=== PATIENT | female | born 1955 | race Caucasian/White ===

== ENCOUNTER 2019-03-21 12:43 | Emergency (ER) | payer MEDICARE, OTHER ==
[2019-03-21 13:00] VITALS: RESP 20; TEMP 98.1; O2SAT 95
[2019-03-21] MEDS ORDERED: ACETAMINOPHEN 325 MG PO ONE (13:00)
[2019-03-21] MEDS ORDERED: ACETAMINOPHEN 325 MG ONE (13:45)
[2019-03-21 13:48] LABS: BASOPHILS % (AUTO) 1 % (0-3); EOSINOPHILS % (AUTO) 2 % (0-9); HEMATOCRIT 41 % (35-47); HEMOGLOBIN 13.3 gm/dl (12.0-15.5); LYMPHOCYTES % (AUTO) 18.8 % (10-50); MEAN CORPUSCULAR HEMOGLOBIN 27.3 pg (27.0-32.0); MEAN CORPUSCULAR HGB CONC 32.8 gm/dl (32.0-36.0); MEAN CORPUSCULAR VOLUME 83 fL (81-99); NEUTROPHILS % (AUTO) 69.3 % (37-80)
[2019-03-21 13:50] VITALS: BP 125/78; PULSE 70
[2019-03-21 14:02] LABS: ALBUMIN 3.5 gm/dl (3.4-5.0); BILIRUBIN,TOTAL 0.4 mg/dl (0.2-1.0); CALCIUM 8.6 mg/dl (8.5-10.1); CARBON DIOXIDE 27.5 mEq/L (21-32); POTASSIUM 3.4 mMol/L (3.5-5.1); TOTAL PROTEIN 6.8 gm/dl (6.4-8.2)
[2019-03-21 14:22] LABS: APPEARANCE,URINE Clear; BILIRUBIN,URINE 1+ (NEGATIVE); COLOR,URINE Dark yellow; GLUCOSE, URINE (UA) NEGATIVE (NEGATIVE); KETONES,URINE TRACE (NEGATIVE); LEUKOCYTE ESTERASE ,URINE NEGATIVE (NEGATIVE); NITRATE,URINE NEGATIVE (NEGATIVE); OCCULT BLOOD,URINE TRACE INTACT (NEG-TRACE); PH,URINE 5.5
[2019-03-21 14:36] LABS: BACTERIA 2+ (< 1+); CRYSTALS NEGATIVE (0-3 AVE/HPF); EPITHELIAL CELLS 0-4 (SQUAMOUS); ICTOTEST,URINE NEGATIVE (NEGATIVE); RBC,URINE 0-1 (0-3AV/HPF); WBC,URINE NEG (0-5AV/HPF)
== END 2019-03-21 15:15 | DRG 556 ==
LOC: ED 12:43
DX: M25.552 Pain in left hip (principal); T14.8XXA Other injury of unspecified body region, initial encounter; W18.30XA Fall on same level, unspecified, initial encounter; M25.521 Pain in right elbow; R40.2412 Glasgow coma scale score 13-15, at arrival to emergency department
CPT/HCPCS: 36415; 73070; 73501; 80053; 81001; 85025; 87088; 93005; 99283

== ENCOUNTER 2019-03-23 23:03 | Inpatient (IN) | payer MEDICARE, OTHER ==
[2019-03-23] MEDS: SODIUM CHLORIDE 0.9% 500 ML 500 ML IV SCH (23:45)
[2019-03-24 00:06] LABS: BASOPHILS % (AUTO) 1 % (0-3); EOSINOPHILS % (AUTO) 4 % (0-9); HEMATOCRIT 40 % (35-47); HEMOGLOBIN 12.9 gm/dl (12.0-15.5); LYMPHOCYTES % (AUTO) 36.2 % (10-50); MEAN CORPUSCULAR HEMOGLOBIN 27.6 pg (27.0-32.0); MEAN CORPUSCULAR HGB CONC 32.4 gm/dl (32.0-36.0); MEAN CORPUSCULAR VOLUME 85 fL (81-99); MONOCYTES % (AUTO) 7.1 % (0-12); NEUTROPHILS % (AUTO) 51.4 % (37-80)
[2019-03-24 00:32] LABS: ALBUMIN 3.3 gm/dl (3.4-5.0); BILIRUBIN,TOTAL 0.3 mg/dl (0.2-1.0); CALCIUM 8.5 mg/dl (8.5-10.1); CREATININE 0.83 mg/dl (0.60-1.00); TOTAL PROTEIN 6.5 gm/dl (6.4-8.2)
[2019-03-24 00:33] LABS: ALCOHOL 0.003 gm/dl (0.000-0.08)
[2019-03-24 00:42] LABS: APPEARANCE,URINE Clear; BILIRUBIN,URINE NEGATIVE (NEGATIVE); COLOR,URINE Yellow; GLUCOSE, URINE (UA) NEGATIVE (NEGATIVE); KETONES,URINE NEGATIVE (NEGATIVE); LEUKOCYTE ESTERASE ,URINE NEGATIVE (NEGATIVE); NITRATE,URINE NEGATIVE (NEGATIVE); OCCULT BLOOD,URINE NEGATIVE (NEG-TRACE); PH,URINE 5.5; UROBILINOGEN,URINE 0.2 (0.2-1.0 EU)
[2019-03-24 00:51] LABS: AMPHETAMINES NEGATIVE (NEGATIVE); BACTERIA TRACE (< 1+); BARBITUATES NEGATIVE (NEGATIVE); BENZODIAZEPINES NEGATIVE (NEGATIVE); CANNABINOL(THC) NEGATIVE (NEGATIVE); COCAINE(COC) NEGATIVE (NEGATIVE); CRYSTALS NEGATIVE (0-3 AVE/HPF); EPITHELIAL CELLS 0-1 (SQUAMOUS); METHAMPHETAMINES NEGATIVE (NEGATIVE); OPIATES(OPI) NEGATIVE (NEGATIVE); OXYCODONE(OXY) NEGATIVE (NEGATIVE); PROPOXYPHENE(PPX) NEGATIVE (NEGATIVE); RBC,URINE 0-1 (0-3AV/HPF); WBC,URINE 0-2 (0-5AV/HPF)
[2019-03-24] MEDS: ACETAMINOPHEN 500 MG 500 MG TAB PO PRN (02:20)
[2019-03-24] MEDS: SODIUM CHLORIDE 0.9% 500 ML 500 ML IV SCH (07:34)
[2019-03-24 07:49] LABS: CALCIUM 8.2 mg/dl (8.5-10.1); CREATININE 0.63 mg/dl (0.60-1.00)
[2019-03-24] MEDS: ENOXAPARIN 40 MG SOL SC SCH (09:39)
[2019-03-24] MEDS ORDERED: SODIUM CHLORIDE 0.9% 1000ML 1,000 ML IV SCH (09:45)
[2019-03-24] MEDS ORDERED: IBUPROFEN 100 MG/5 ML SUS PO PRN ×2 (10:56→18:31)
[2019-03-24] MEDS: AMLODIPINE 5 MG TAB PO SCH (11:48)
[2019-03-24] MEDS: CALCIUM CARBONATE 500 MG TAB PO SCH (11:48)
[2019-03-24] MEDS: SERTRALINE HYDROCHLORIDE 50 MG TAB PO SCH (11:49)
[2019-03-24] MEDS: MULTIVITAMIN2 1 EA TAB PO SCH (11:49)
[2019-03-24] MEDS: PANTOPRAZOLE SODIUM 40 MG ECT PO SCH (11:49)
[2019-03-24] MEDS: CHOLECALCIFEROL 1,000 IU (25 MCG) TAB PO SCH (11:49)
[2019-03-24] MEDS: SODIUM CHLORIDE 0.9% 1000ML 1,000 ML IV SCH ×2 (12:31→19:14)
[2019-03-24] MEDS: OXYBUTYNIN CHLORIDE 10 MG TER PO SCH (16:49)
[2019-03-24] MEDS: QUINAPRIL 20 MG TAB PO SCH (18:10)
[2019-03-24] MEDS: BACLOFEN 10 MG TAB PO SCH (20:59)
[2019-03-24] MEDS: GABAPENTIN 300 MG CAP PO SCH (20:59)
[2019-03-24] MEDS ORDERED: PEG-400/PROPYLENE GLYCOL 1 DROP SOL OP SCH (21:00)
[2019-03-24] MEDS: ATORVASTATIN 10 MG TAB PO SCH (21:00)
[2019-03-25] MEDS: SODIUM CHLORIDE 0.9% 1000ML 1,000 ML IV SCH ×4 (00:39→18:00)
[2019-03-25 08:05] LABS: BASOPHILS % (AUTO) 2 % (0-3); EOSINOPHILS % (AUTO) 5 % (0-9); HEMATOCRIT 41 % (35-47); LYMPHOCYTES % (AUTO) 37.3 % (10-50); MEAN CORPUSCULAR HEMOGLOBIN 27.2 pg (27.0-32.0); MEAN CORPUSCULAR HGB CONC 31.8 gm/dl (32.0-36.0); MEAN CORPUSCULAR VOLUME 86 fL (81-99); NEUTROPHILS % (AUTO) 48.4 % (37-80)
[2019-03-25 08:06] LABS: CALCIUM 8.7 mg/dl (8.5-10.1); CARBON DIOXIDE 27.2 mEq/L (21-32); CREATININE 0.61 mg/dl (0.60-1.00)
[2019-03-25] MEDS: BACLOFEN 10 MG TAB PO SCH ×2 (09:14→20:37)
[2019-03-25] MEDS: ACETAMINOPHEN 500 MG 500 MG TAB PO PRN (09:14)
[2019-03-25] MEDS: CALCIUM CARBONATE 500 MG TAB PO SCH (09:15)
[2019-03-25] MEDS: OXYBUTYNIN CHLORIDE 10 MG TER PO SCH (09:15)
[2019-03-25] MEDS: AMLODIPINE 5 MG TAB PO SCH (09:15)
[2019-03-25] MEDS: PANTOPRAZOLE SODIUM 40 MG ECT PO SCH (09:15)
[2019-03-25] MEDS: CHOLECALCIFEROL 1,000 IU (25 MCG) TAB PO SCH (09:16)
[2019-03-25] MEDS: MULTIVITAMIN2 1 EA TAB PO SCH (09:16)
[2019-03-25] MEDS: SERTRALINE HYDROCHLORIDE 50 MG TAB PO SCH (09:17)
[2019-03-25] MEDS: ENOXAPARIN 40 MG SOL SC SCH (09:19)
[2019-03-25] MEDS: QUINAPRIL 20 MG TAB PO SCH (18:17)
[2019-03-25] MEDS: GABAPENTIN 300 MG CAP PO SCH (20:38)
[2019-03-25] MEDS: ATORVASTATIN 10 MG TAB PO SCH (20:38)
[2019-03-26 02:46] VITALS: O2SAT 98
[2019-03-26] MEDS: PANTOPRAZOLE SODIUM 40 MG ECT PO SCH ×2 (05:16→09:41)
[2019-03-26 09:37] VITALS: BP 143/83; PULSE 73; RESP 20; TEMP 97.6
[2019-03-26] MEDS: CHOLECALCIFEROL 1,000 IU (25 MCG) TAB PO SCH (09:42)
[2019-03-26] MEDS: OXYBUTYNIN CHLORIDE 10 MG TER PO SCH (09:42)
[2019-03-26] MEDS: MULTIVITAMIN2 1 EA TAB PO SCH (09:43)
[2019-03-26] MEDS: CALCIUM CARBONATE 500 MG TAB PO SCH (09:43)
[2019-03-26] MEDS: SERTRALINE HYDROCHLORIDE 50 MG TAB PO SCH (09:43)
[2019-03-26] MEDS: BACLOFEN 10 MG TAB PO SCH (09:43)
[2019-03-26] MEDS: AMLODIPINE 5 MG TAB PO SCH (09:44)
[2019-03-26] MEDS: ENOXAPARIN 40 MG SOL SC SCH (09:48)
== END 2019-03-26 10:30 | DRG 558 ==
LOC: ED 23:03 → ACUTE CARE 03-24 01:04 → OBSVTOIN 03-24 01:04
PROVIDERS: ADMIT Family Medicine; ATTEND Family Medicine
PROC: F02Z0ZZ Bathing/Showering Assessment (ICD-10-PCS; principal; 2019-03-24)
PROC: F02Z3ZZ Grooming/Personal Hygiene Assessment (ICD-10-PCS; 2019-03-24)
PROC: F01ZCFZ Transfer Assessment using Assistive, Adaptive, Supportive or Protective Equipment (ICD-10-PCS; 2019-03-24)
DX: M62.82 Rhabdomyolysis (principal); S01.01XA Laceration without foreign body of scalp, initial encounter; W18.30XA Fall on same level, unspecified, initial encounter; S09.90XA Unspecified injury of head, initial encounter; R40.2412 Glasgow coma scale score 13-15, at arrival to emergency department; R29.90 Unspecified symptoms and signs involving the nervous system; R47.1 Dysarthria and anarthria
CPT/HCPCS: 12001; 36415; 70450; 72125; 80048; 80053; 80305; 80307; 81001; 82550; 85025; 93005; 94762; 96365; 99283; 99285; J1650; A9270-GY